=== PATIENT | female | born 1950 | race Caucasian/White ===

== ENCOUNTER → 2023-09-03 07:28 | Outpatient (REF) | payer MEDICARE, OTHER, SELFPAY | LOC: RCS 07:28 | PROVIDERS: ATTENDING PHYSICIAN Nurse Practitioner Family; FAMILY PHYSICIAN Internal Medicine | DX: R55 Syncope and collapse (principal) | CPT/HCPCS: 93306 ==

== ENCOUNTER → 2024-01-24 07:00 | Outpatient (REF) | payer MEDICARE, OTHER, SELFPAY | LOC: HWRCS 07:00 | PROVIDERS: ATTENDING PHYSICIAN Nurse Practitioner Family | DX: R55 Syncope and collapse (principal) | CPT/HCPCS: 93306 ==

== ENCOUNTER → 2024-04-25 14:00 | Outpatient (REF) | payer MEDICARE, OTHER, SELFPAY | LOC: HWWDC 14:00 | PROVIDERS: ATTENDING PHYSICIAN Obstetrics & Gynecology Gynecology; FAMILY PHYSICIAN Internal Medicine | DX: Z12.31 Encounter for screening mammogram for malignant neoplasm of breast (principal) | CPT/HCPCS: 77063; 77067 ==

== ENCOUNTER 2024-04-28 15:00 | Outpatient (RCR) | payer MEDICARE, OTHER, SELFPAY | END 2024-04-28 23:59 | disposition home or self-care (01) | LOC: RST 15:00 | PROVIDERS: ATTENDING PHYSICIAN Otolaryngology; FAMILY PHYSICIAN Family Medicine | DX: R49.0 Dysphonia (principal) | CPT/HCPCS: 92507; 92524 ==

== ENCOUNTER 2024-05-26 07:57 | Outpatient (RCR) | payer MEDICARE, OTHER, SELFPAY | END 2024-05-26 23:59 | disposition home or self-care (01) | LOC: RST 07:57 | PROVIDERS: ATTENDING PHYSICIAN Otolaryngology; FAMILY PHYSICIAN Family Medicine | DX: R49.0 Dysphonia (principal) | CPT/HCPCS: 92507 ==

== ENCOUNTER 2024-06-23 07:32 | Outpatient (RCR) | payer MEDICARE, OTHER, SELFPAY | END 2024-06-23 23:59 | disposition home or self-care (01) | LOC: RST 07:32 | PROVIDERS: ATTENDING PHYSICIAN Otolaryngology; FAMILY PHYSICIAN Family Medicine | DX: R49.0 Dysphonia (principal) | CPT/HCPCS: 92507 ==

== ENCOUNTER 2024-07-21 06:50 | Outpatient (RCR) | payer MEDICARE, OTHER, SELFPAY | END 2024-07-21 23:59 | disposition home or self-care (01) | LOC: RST 06:50 | PROVIDERS: ATTENDING PHYSICIAN Otolaryngology; FAMILY PHYSICIAN Family Medicine | DX: R49.0 Dysphonia (principal) | CPT/HCPCS: 92507 ==

== ENCOUNTER 2024-08-18 06:51 | Outpatient (RCR) | payer MEDICARE, OTHER, SELFPAY | END 2024-08-18 23:59 | disposition home or self-care (01) | LOC: RST 06:51 | PROVIDERS: ATTENDING PHYSICIAN Otolaryngology; FAMILY PHYSICIAN Family Medicine | DX: R49.0 Dysphonia (principal) | CPT/HCPCS: 92507 ==

== ENCOUNTER 2024-09-15 07:55 | Outpatient (RCR) | payer MEDICARE, OTHER, SELFPAY | END 2024-09-15 23:59 | disposition home or self-care (01) | LOC: RST 07:55 | PROVIDERS: ATTENDING PHYSICIAN Otolaryngology; FAMILY PHYSICIAN Family Medicine | DX: R49.0 Dysphonia (principal) | CPT/HCPCS: 92507 ==

== ENCOUNTER 2024-09-27 08:10 | Outpatient (RCR) | payer MEDICARE, OTHER, SELFPAY | END 2024-09-27 23:59 | disposition home or self-care (01) | LOC: RST 08:10 | PROVIDERS: ATTENDING PHYSICIAN Otolaryngology; FAMILY PHYSICIAN Family Medicine | DX: R49.0 Dysphonia (principal) | CPT/HCPCS: 92507 ==

== ENCOUNTER 2024-11-03 07:21 | Outpatient (RCR) | payer MEDICARE, OTHER, SELFPAY | END 2024-11-03 23:59 | disposition home or self-care (01) | LOC: RST 07:21 | PROVIDERS: ATTENDING PHYSICIAN Otolaryngology; FAMILY PHYSICIAN Family Medicine | DX: R49.0 Dysphonia (principal) | CPT/HCPCS: 92507 ==

== ENCOUNTER 2024-11-05 10:06 | Emergency (ER) | payer MEDICARE, OTHER, SELFPAY ==
[2024-11-05 10:08] VITALS: BP 168/107
--- NOTE | 2024-11-05 10:28 | ED.GENMED ---
History of Present Illness
General
Chief Complaint: Back Pain
Time Seen by Provider: 11/05/24 10:27
History of Present Illness
History of Present Illness:
SEE mdm
Past History
Past History
ED Past Medical History: HTN
ED Past Surgical History: Appendectomy and Gynecological (Lumpectomy)
Social History
Tobacco: Non-smoker
Family History
Family History: Negative Diabetes, Hypertension, Early CAD or Asthma
Phy Exam
Physical Exam
Physical Exam:
GENERAL: Alert , in no apparent distress, comfortable at rest
HEAD: NCAT
NECK: no midline tenderness, active ROM intact, no paraspinal muscle tenderness;
CARDIAC: Regular rate and rhythm, no edema
LUNGS: Clear breath sounds bilaterally, no acute respiratory distress, no wheezes/rales/rhonchi
ABDOMEN: Soft, without focal tenderness, no r/g, no cvat, normal bowel sounds, nondistended
NEUROLOGICAL: Alert and oriented, no focal neuro deficits, CN intact, 5/5 strength, sensation intact, ambulation slight limp left leg
SKIN: Warm and dry, no rashes
MUSCULOSKELETAL: No edema, well perfused.
Patient has no tenderness to palpation of the hips or SI joints
Back: No midline tenderness feels pain i nlower back with flexion but can fully flex
also has pain with walking and extension
negative straight leg raise Bilaterally
PSYCH: Normal and appropriate interaction.
Course
Orders/Labs/Results
Orders:
Orders
11/05/24 10:47
Lumbar Spine Complete, 4 View [CR Lumbar Spine Comp Min 4 Vw*] Urgent
Comment:
Reason For Exam: atraumatic low back pain lower L spine
Vital Signs
Initial and Last Documented VS:
Initial Vital Signs
Temp Pulse Resp BP Pulse Ox
37.0 C 85 16 168/107 98
11/05/24 10:08 11/05/24 10:08 11/05/24 10:08 11/05/24 10:08 11/05/24 10:08
Last Documented Vital Signs
Temp Pulse Resp BP Pulse Ox
37.0 C 85 16 168/107 98
11/05/24 10:08 11/05/24 10:08 11/05/24 10:08 11/05/24 10:08 11/05/24 10:08
MDM/Problems Addressed
Differential Diagnosis Includes:
see MDM
MDM/Problems Addressed:
Note:
CHIEF COMPLAINT(S)
Severe back pain.
HISTORY OF PRESENT ILLNESS
The patient is a 74-year-old female presenting with progressively worsening back pain. The pain began spontaneously last Wednesday when the patient woke up with discomfort in the back. Initially, the pain was manageable with acetaminophen (Tylenol),
but over time, its severity increased. Approximately six days after the onset, NSAIDs (ibuprofen) were required, with the patient reporting taking up to six doses by 8 PM the previous night, leading to severe pain described as excruciating. Despite
taking ibuprofen, the patient did not experience any relief and was unable to sleep due to the intensity of the pain. The patient denies any radiation of pain down the legs, and clarifies that the pain is localized to the back. The pain seems
positional and intensifies with certain movements such as walking or turning. She denies any urinary symptoms such as burning, frequency, or urgency and reports no prior history of back problems or initiating event that could have prompted this
episode.
PAST MEDICAL AND SURIGICAL HISTORY
Hypertension (high blood pressure)
Hyperlipidemia (careful about cholesterol)
CHRONIC MEDICAL CONDITIONS SIGNIFICANTLY AFFECTING CARE
Hypertension
Hyperlipidemia
SOCIAL DETERMINANTS AFFECTING HEALTH
The patient lives independently and was visited by family recently, indicating a support system that briefly came from [place]. There is no mention of any substance use, financial or housing instability, or other stressors impacting health.
REVIEW OF SYSTEMS
- Musculoskeletal: Severe, progressively worsening back pain; localized, non-radiating.
- Urinary: Denies burning, frequency, or urgency.
- Constitutional: No fever, chills reported.
PHYSICAL EXAM
- Nursing notes reviewed and vital signs reviewed.
PROBLEM LIST
Acute:
- Severe back pain, possibly mechanical in nature.
Chronic:
- Hypertension
- Hyperlipidemia
PLAN
The patient was asked to change into a gown for further physical examination to localize the pain better and assess any associated muscular or structural issues.
DIFFERENTIAL DIAGNOSIS
The Differential Diagnosis includes, in no particular order and is not limited to:
1. Muscular strain
2. Degenerative disc disease
3. Osteoarthritis of the spine
4. Spinal stenosis
5. Vertebral compression fracture
6. Osteoporosis with pathological fracture
7. Herniated disc
8. Kidney pathology (e.g., pyelonephritis, kidney stones)
9. Inflammatory arthritis (e.g., ankylosing spondylitis)
10. Metastatic disease to bone
CARE-UPDATE
11/05/24 - 12:25
Patient's x-ray was reviewed with her, independently reviewed by me and discussed with radiology to reveal multilevel degenerative changes without fractures. I doubt she has disc herniation symptoms such as radiating leg pain, numbness, or
weakness. The treatment plan includes continuing NSAIDs for anti-inflammatory benefits, consideration of hydrocodone with Tylenol (Vicodin) for pain management and facilitating sleep, and recommending a stool softener or Metamucil for opioid-induced
constipation management. The patient is advised to begin a Medrol Dose Pack (steroid) tomorrow, with caution to avoid excessive ibuprofen use during this course. Light cream patches and alternating ice or heat therapy are also suggested for
symptomatic relief. Physical therapy and core strengthening exercises are recommended as follow-up actions. Transportation concerns were addressed, although there remains difficulty in securing an [employer] for a short distance.
Appreciate patient's hypertension, she seems a little anxious and also was in a little bit of pain. She denies that she took her medication this morning which is also contributory. She has no chest pain, shortness of breath, headache, vision
changes and this back pain is very positional consistent with musculoskeletal back pain and I am not concerned about vascular pathology
*Pulse Oximetry
SaO2: 98
Oxygen Mode of Delivery: Room air
Patient hypoxic: no (98)
*Critical Care Note
Total Time (30-74mins, 75-104mins- exclusive of procedures): Not Applicable
ED Attending Note
-
Portions of this chart may have been created with voice recognition software.� Occasional wrong word or��sound alike� substitutions may have occurred due to the inherent limitations of voice recognition software.
Discharge Plan
Departure
Patient Disposition: Home (Routine Discharge)
Date of Disposition: 11/05/24
Time of Disposition: 12:29
Patient with high blood pressure during this ER visit?: Yes
Condition: Fair
Covid-19: Not Applicable
Discharge Problem:
Degenerative arthritis of lumbar spine
Instructions: Low Back Pain (DC), BLOOD PRESSURE
Prescriptions:
New
hydrocodone-acetaminophen 5-325 mg tablet
1 tab PO Q8H PRN (Reason: Pain) Qty: 15 0RF
lidocaine 5 % adhesive patch,medicated
1 patch topical DAILY PRN (Reason: pain) Qty: 15 0RF
methylprednisolone [Medrol (Dariel)] 4 mg tablets,dose pack
See Rx Instructions .ROUTE .COMPLEX Qty: 21 0RF
Rx Instructions:
for 6 days
No Action
atorvastatin [Lipitor] 40 MG tablet
40 mg PO HS
losartan-hydrochlorothiazide 1 TAB tablet
1 tab PO DAILY
aspirin 81 MG tablet,chewable
81 mg PO DAILY
albuterol sulfate 1 PUFF HFA aerosol inhaler
1 puff inhalation R Q4HPRN PRN (Reason: asthma)
Bupropion Regular Release
1 tab PO DAILY
Singulair
1 tab PO DAILY
Referrals:
Julieta Giraldo MD [Family Provider, Internal Medicine] - Follow up in 2-3 days
Activity Restrictions/Additional Instructions:
Your lumbar back pain is likely from degenerative arthritis of your back. It seems very positional. Try lidocaine patch 12 hours on, 12 hours off as needed for pain. When the patch is off you can ice or heat alternate. Take Medrol Dosepak
starting tomorrow and follow the instructions, this is an anti-inflammatory. While you are on this please only take ibuprofen once a day. Otherwise you can try the Vicodin which has 1 Tylenol in it every 6 hours as needed. This is a narcotic.
You need to be on a stool softener like [id number] Metamucil while you are on this. Follow-up with your family doctor this week. You may need physical therapy.
Your blood pressure was minimally elevated which could be from not taking your medication and also because you are in pain. This should improve but should you have worsening blood pressure issues please see your doctor.
Return to the ER for severe worsening of symptoms, leg weakness or numbness, incontinence, fever or chills, chest pain or shortness of breath or any concern
Interventions
Interventions:
*Risk Screen - Suicide Last Done: 11/05/24 10:08
*General Assessment Last Done: 11/05/24 11:21
*Neglect/Abuse Screening Last Done: 11/05/24 10:08
*ED- Fall Risk Assessment Last Done: 11/05/24 11:21
*ED COVID-19 Vaccine History Last Done: 11/05/24 11:21
ED-Musculoskeletal Assessment Last Done: 11/05/24 11:21
Discharge Date and Time
Print Language: ROMANIAN
[2024-11-05 12:28] VITALS: BP 159/88
== END 2024-11-05 12:42 | disposition home or self-care (01) ==
LOC: EMR 10:06
PROVIDERS: EMERGENCY PHYSICIAN Emergency Medicine; FAMILY PHYSICIAN Internal Medicine
DX: M47.816 Spondylosis without myelopathy or radiculopathy, lumbar region (principal); I10 Essential (primary) hypertension; E78.5 Hyperlipidemia, unspecified; Z90.49 Acquired absence of other specified parts of digestive tract
CPT/HCPCS: 99283; 72110

== ENCOUNTER 2025-01-12 07:00 | Outpatient (RCR) | payer MEDICARE, OTHER, SELFPAY | END 2025-01-12 23:59 | disposition home or self-care (01) | LOC: RST 07:00 | PROVIDERS: ATTENDING PHYSICIAN Otolaryngology; FAMILY PHYSICIAN Family Medicine | DX: R49.0 Dysphonia (principal) | CPT/HCPCS: 92507 ==

== ENCOUNTER → 2025-02-10 09:51 | Outpatient (REF) | payer MEDICARE, OTHER, SELFPAY | LOC: RAD 09:51 | PROVIDERS: ATTENDING PHYSICIAN Hospitalist | DX: R05.3 Chronic cough (principal); J45.20 Mild intermittent asthma, uncomplicated | CPT/HCPCS: 71250 ==

== ENCOUNTER 2025-02-16 07:35 | Outpatient (RCR) | payer MEDICARE, OTHER, SELFPAY | END 2025-02-16 23:59 | disposition home or self-care (01) | LOC: RST 07:35 | PROVIDERS: ATTENDING PHYSICIAN Otolaryngology; FAMILY PHYSICIAN Family Medicine | DX: R49.0 Dysphonia (principal) | CPT/HCPCS: 92507 ==

== ENCOUNTER 2025-03-09 08:14 | Outpatient (RCR) | payer MEDICARE, OTHER, SELFPAY | END 2025-03-09 23:59 | disposition home or self-care (01) | LOC: RST 08:14 | PROVIDERS: ATTENDING PHYSICIAN Otolaryngology; FAMILY PHYSICIAN Family Medicine | DX: R49.0 Dysphonia (principal) | CPT/HCPCS: 92507 ==